=== PATIENT | female | born 1960 | race Caucasian/White ===

== ENCOUNTER → 2016-06-19 | Day surgery (SDC) | payer OTHER ==
[~2016-06-19] MED LIST: BUPIVACAINE/EPINEPHRINE 0.5% PF 30 ML VIAL ONE; CYCL-36 PO; ESTR.3 PO; KETOROLAC TROMETHAMINE 30 MG/ML (IVP) VIAL IV PUSH ONE; LACTATED RINGER'S 1000 ML INJ 1,000 ML ONE; LORT5TAB PO; MEPERIDINE HCL 25 MG/ML VIAL ONE; MIDAZOLAM HCL 2 MG/2 ML VIAL ONE; ONDANSETRON HCL 4 MG/2 ML VIAL IV PUSH ONE; PROPOFOL 200 MG/20 ML AMP IV ONE; PYRI200T4 PO; SULF-154 PO; VANCOMYCIN HCL 1000 MG VIAL ONE; metroNIDAZOLE 500 MG INJ 100 ML IV ONE
--- NOTE | 2016-06-19 10:49 | TN ---
cc: STEVIE SCHULTZ M.D., DAVID G. M.D. DATE OF SURGERY: 06/19/2016 PREOPERATIVE DIAGNOSES Biliary dyskinesia, possible chronic acalculous cholecystitis. POSTOPERATIVE DIAGNOSES Biliary dyskinesia, possible chronic acalculous cholecystitis. PROCEDURE Laparoscopic cholecystectomy. SURGEON Dr. Charlie Avalos. ANESTHESIA General. INDICATIONS A very pleasant 56-year-old woman who has had chronic abdominal discomfort and bloating with increased symptoms associated with certain foods including milk and cereal, ice cream and sometimes pizza. She has undergone extensive gastrointestinal workup by Dr. Schultz and a HIDA scan showed very severe reaction to the administration of cholecystokinin. She is felt to have gallbladder dyskinesia and her GI doctor referred her for cholecystectomy. INTRAOPERATIVE FINDINGS Gallbladder removed and sent to pathology. ESTIMATED BLOOD LOSS Less than 10 mL. DESCRIPTION OF PROCEDURE IN DETAIL The patient was identified as [place]ne [place], taken to the operating room, placed in the supine position. Sequential compression devices were placed on bilateral lower extremities. Following induction of adequate general endotracheal anesthesia, the patient's abdomen was prepped and draped in usual sterile fashion with Betadine. Time-out procedure was performed. Following completion of time-out procedure to everyone's satisfaction within the room, 0.5% Marcaine with epinephrine was placed at each incision site. Previous infraumbilical laparoscopy scar was opened with a scalpel and dissection continued posteriorly to level of the midline fascia. The base of the umbilicus was retracted anteriorly. The fascia was incised in vertical fashion allowing for entry in the peritoneal cavity with the surgeon's finger. The applied medical balloon Longoria trocar was placed in the peritoneal cavity, its balloon inflated with C02 insufflation until a level of 15 mmHg ensued. The patient was placed in a reverse Trendelenburg position and two upper abdominal 5 mm trocars were placed in the peritoneal cavity under direct laparoscopic view after incision of skin with a scalpel. Gallbladder was immediately identified, it was retracted superiorly and anteriorly. There were no inflammatory adhesions. There is a fair amount of fatty tissue around the gallbladder cystic duct junction. The gallbladders removed from the gallbladder fossa in a dome down technique using the harmonic scalpel. There was a very thin plane between the gallbladder and liver and a small amount of ooze occurred which was controlled with the harmonic scalpel. Cystic arterial branch was divided with a harmonic scalpel. The cystic duct was isolated from surrounding tissues, ligated proximally, distally with 0-PDS Endoloops and divided between the Endoloops. The gallbladder was removed from the peritoneal cavity through the infraumbilical fascial port incision site and passed off the field for pathologic evaluation. The gallbladder fossa was hemostatic. The cystic duct ligature remained intact. The cystic arterial stump was hemostatic. Remaining local anesthetic was placed in a subhepatic position. Brief survey of the remainder of the intra-abdominal contents demonstrated no obvious abnormalities. Trocars were removed under direct visualization. There was no evidence of bleeding from trocar sites. The abdomen was desufflated through the infraumbilical port which was then removed. Infraumbilical fascial incision was closed with interrupted 0 Vicryl sutures. Port site skin incisions were irrigated with saline and then closed with interrupted 4-0 Monocryl subcuticular sutures. Dressings were applied, Mastisol, half-inch brown Steri-Strips. The patient tolerated the procedure without apparent complication. Sponge, needle and instrument counts were correct at the end of the case. MD JERRICA Jacinto/BLAIR /10:08 AM /10:18 AM
== END | disposition home or self-care (01) ==
LOC: ESDC 07:39
PROVIDERS: ATTEND Surgery Trauma Surgery
DX: K81.1 Chronic cholecystitis (principal)
CPT/HCPCS: 00790; 47562; 88304; J1885; J2175; J2250; J2405; J3010; J3370; J7120